=== PATIENT | female | born 1975 | race Caucasian/White ===

== ENCOUNTER → 2018-01-24 | Outpatient (CLI) | payer OTHER, BC ==
[~2018-01-24] MED LIST: BISA10S PR; CLEM1.34; CONTRAVE ER 8-1 EACH; CVS DISPOSABLE399 ML PR; DIAZ5 PO; DOCU100 PO; IBUP400 PO; Milk Of Ma800 MG/5 M PO; NITR.6SL PO; OXYACE5T PO; PARO20 PO; PROBIOTIC1 EAC1 PO; PSEU120ER PO
== END | disposition home or self-care (01) ==
LOC: LAB SHORT 15:14 → LAB 15:14
DX: O92.6 Galactorrhea (principal)
CPT/HCPCS: 87070; 87075; 87077; 87147; 87186; 87205

== ENCOUNTER → 2021-04-08 | Outpatient (CLI) | payer BC ==
[~2021-04-08] MED LIST changes: +ALLEGRA ALLERG180 MG PO; +Evening Primro1 EACH; +Mupirocin22 GM TP; +ONDA4ODT MM
[2021-04-08 18:46] LABS: Adenovirus F 40/41 Not Detected (NOT DETECT); Astrovirus Not Detected (NOT DETECT); Campylobacter Sp Not Detected (NOT DETECT); Cryptosporidium Not Detected (NOT DETECT); Cyclospora Cayetanensis Not Detected (NOT DETECT); E. Coli O157 Not Detected (NOT DETECT); Entamoeba Histolytica Not Detected (NOT DETECT); Enteroaggregative E. coli-EAEC Not Detected (NOT DETECT); Enteropathogenic E. coli-EPEC Not Detected (NOT DETECT); Enterotoxigenic E. coli-ETEC Not Detected (NOT DETECT); Giardia Lamblia Not Detected (NOT DETECT); Norovirus GI/GII Not Detected (NOT DETECT); Plesiomonas Shigelloides Not Detected (NOT DETECT); Rotavirus A Not Detected (NOT DETECT); Salmonella Sp Not Detected (NOT DETECT); Sapovirus Not Detected (NOT DETECT); Shiga Toxin-prod E. coli-STEC Not Detected (NOT DETECT); Shigella/Enteroin E. coli-EIEC Not Detected (NOT DETECT); Vibrio Cholerae Not Detected (NOT DETECT); Vibrio Sp Not Detected (NOT DETECT); Yersinia Enterocolitica Not Detected (NOT DETECT)
== END | disposition home or self-care (01) ==
LOC: LAB 15:47 → LAB SHORT 15:47
PROVIDERS: Hospitalist
DX: R19.7 Diarrhea, unspecified (principal)
CPT/HCPCS: 0097U; 87324

== ENCOUNTER → 2022-08-03 | Outpatient (CLI) | payer BC ==
[2022-08-04 07:00] LABS: Magnesium, Blood 2.5 mg/dL (1.6-2.4)
[2022-08-04 07:12] LABS: Bun/Creatinine Ratio 21.4 (12.0-20.0); Calcium, Blood 9.5 mg/dL (8.5-10.1); Creatinine, Blood 0.94 mg/dL (0.40-1.00); Potassium, Blood 3.4 mmol/L (3.5-5.5)
== END | disposition home or self-care (01) ==
LOC: LAB SHORT 16:25 → LAB 16:25
PROVIDERS: Hospitalist
DX: E87.6 Hypokalemia (principal)
CPT/HCPCS: 80048; 83735

== ENCOUNTER 2024-09-06 12:03 | Emergency (ER) | payer BC ==
[~2024-09-06] VITALS: Ht 170.2 cm; Wt 72.1 kg
[~2024-09-06 12:03] MED LIST changes: +Adipex-P37.5 M1 PO; +Ativan1 MG PO; +DIAZ5EL; +HYDCHL50 PO; +IBUP400; +PARO30 PO; +POTCHL20ER PO; +ZYRTEC10 M2 PO
[2024-09-06] MEDS ORDERED: Oxymetazoline 0.05% Nasal Relief Spray 15mL BTL ONE ×2 (12:25→15:05)
[2024-09-06 12:55] LABS: BASOPHILS ABSOLUTE AUTO 0.05 K/mm3 (0.00-0.23); BASOPHILS PERCENT AUTO 1 % (0-2); EOSINOPHILS ABSOLUTE AUTO 0.23 K/mm3 (0.00-0.68); EOSINOPHILS PERCENT AUTO 4 % (0-6); Hematocrit 36.4 % (33.0-51.0); Hemoglobin 12.8 g/dL (11.5-16.0); IMMATURE GRAN ABSOLUTE AUTO 0.02 K/mm3 (0.00-0.10); IMMATURE GRAN PERCENT AUTO 0 % (0-1); LYMPHOCYTES ABSOLUTE AUTO 1.48 K/mm3 (0.84-5.20); LYMPHOCYTES PERCENT AUTO 27 % (21-46); MONOCYTES ABSOLUTE AUTO 0.39 K/mm3 (0.16-1.47); MONOCYTES PERCENT AUTO 7 % (4-13); Mean Corpuscular HGB 28.7 pg (26.0-34.0); Mean Corpuscular HGB Conc 35.2 g/dL (31.5-36.5); Mean Corpuscular Volume 82 fL (80-100); Mean Platelet Volume 8.8 fL (9.1-12.4); NEUTROPHILS ABSOLUTE AUTO 3.37 K/mm3 (1.96-9.15); NEUTROPHILS PERCENT AUTO 61 % (41-73); Platelet Count 295 K/mm3 (150-400); RDW Coefficient Variation 12.9 % (11.7-14.2); RDW Standard Deviation 38.1 fL (35.1-46.3); Red Blood Cell Count 4.46 M/mm3 (3.80-5.20); White Blood Cell Count 5.54 K/mm3 (4.00-11.30)
[2024-09-06 13:21] LABS: Albumin, Blood 3.8 g/dL (3.4-5.0); Albumin/Globulin Ratio 0.9 (0.8-1.8); Bilirubin, Total 0.5 mg/dL (0.1-1.0); Calcium, Blood 9.2 mg/dL (8.5-10.1); Creatinine, Blood 0.82 mg/dL (0.40-1.00); Globulin, Blood 4.1 g/dL (2.2-4.0); Potassium, Blood 3.1 mmol/L (3.5-5.5); Total Protein, Blood 7.9 g/dL (6.4-8.2)
[2024-09-06] MEDS ORDERED: Potassium Chloride 20 MEQ TabCR PO ONE (13:40)
[2024-09-06] MEDS ORDERED: Tranexamic Acid 100 ML IV ONE (16:00)
[2024-09-06] MEDS ORDERED: Tranexamic Acid 1000 MG/10 ML 10ML Vial (SDV) ONE (16:04)
[2024-09-06 16:57] VITALS: BP 120/82
== END 2024-09-06 16:57 | disposition home or self-care (01) ==
LOC: ER 12:03
PROVIDERS: Student in an Organized Health Care Education/Training Program
DX: R07.89 Other chest pain (principal); E87.6 Hypokalemia; R04.0 Epistaxis; F32.A Depression, unspecified; Z79.899 Other long term (current) drug therapy
CPT/HCPCS: 30901; 71046; 80053; 85025; 93005; 93010; 99284-25; A9270

== ENCOUNTER → 2024-09-09 | Outpatient (CLI) | payer BC ==
[2024-09-09 18:58] LABS: BASOPHILS ABSOLUTE AUTO 0.03 K/mm3 (0.00-0.23); BASOPHILS PERCENT AUTO 1 % (0-2); EOSINOPHILS ABSOLUTE AUTO 0.23 K/mm3 (0.00-0.68); EOSINOPHILS PERCENT AUTO 4 % (0-6); Hematocrit 33.5 % (33.0-51.0); Hemoglobin 11.5 g/dL (11.5-16.0); IMMATURE GRAN ABSOLUTE AUTO 0.02 K/mm3 (0.00-0.10); IMMATURE GRAN PERCENT AUTO 0 % (0-1); LYMPHOCYTES ABSOLUTE AUTO 1.46 K/mm3 (0.84-5.20); LYMPHOCYTES PERCENT AUTO 27 % (21-46); MONOCYTES ABSOLUTE AUTO 0.38 K/mm3 (0.16-1.47); MONOCYTES PERCENT AUTO 7 % (4-13); Mean Corpuscular HGB 28.6 pg (26.0-34.0); Mean Corpuscular HGB Conc 34.3 g/dL (31.5-36.5); Mean Corpuscular Volume 83 fL (80-100); Mean Platelet Volume 9.5 fL (9.1-12.4); NEUTROPHILS ABSOLUTE AUTO 3.36 K/mm3 (1.96-9.15); NEUTROPHILS PERCENT AUTO 61 % (41-73); Platelet Count 286 K/mm3 (150-400); RDW Coefficient Variation 13.2 % (11.7-14.2); RDW Standard Deviation 39.9 fL (35.1-46.3); Red Blood Cell Count 4.02 M/mm3 (3.80-5.20); White Blood Cell Count 5.48 K/mm3 (4.00-11.30)
== END ==
LOC: LAB 17:47 → LAB SHORT 17:47
PROVIDERS: Hospitalist
DX: R04.0 Epistaxis (principal)
CPT/HCPCS: 85025